=== PATIENT | female | born 1980 | race Caucasian/White ===

== ENCOUNTER 2022-05-22 12:54 | Outpatient (REF) | payer BC, SELFPAY | END 2022-05-22 12:55 | disposition home or self-care (01) | LOC: HO.MDS 12:54 | PROVIDERS: Visit Provider Psychiatry & Neurology Neurology | DX: H46.9 Unspecified optic neuritis (principal) | CPT/HCPCS: 96365; J2930 ==

== ENCOUNTER 2022-05-23 12:21 | Outpatient (REF) | payer BC, SELFPAY | END 2022-05-23 12:22 | disposition home or self-care (01) | LOC: HO.MDS 12:21 | PROVIDERS: Visit Provider Psychiatry & Neurology Neurology | DX: H46.9 Unspecified optic neuritis (principal) | CPT/HCPCS: 96365; J2930 ==

== ENCOUNTER 2022-05-24 08:00 | Outpatient (REF) | payer BC, SELFPAY | END 2022-05-24 08:01 | disposition home or self-care (01) | LOC: HO.MDS 08:00 | PROVIDERS: Visit Provider Psychiatry & Neurology Neurology | DX: H46.9 Unspecified optic neuritis (principal) | CPT/HCPCS: 96365; J2930 ==

== ENCOUNTER 2022-06-10 08:32 | Outpatient (REF) | payer BC, OTHER, SELFPAY ==
--- NOTE | ~2022-06-10 | MR_ITS ---
MRI ORBITS WITHOUT AND WITH CONTRAST CLINICAL INFORMATION: Left-sided optic neuritis. COMPARISON: Brain MRI May 01, 2022. TECHNIQUE: MRI of the orbits was obtained using routine sequences without and with contrast. Intravenous contrast: Gadavist 8.5 mL. FINDINGS: The intraorbital soft tissues including the globes, extraocular muscles, lacrimal glands, and optic nerves are normal. Preserved fat within the orbital fissures and pterygopalatine fossa bilaterally. Bone marrow signal is homogenous and normal. No pathologic signal nor enhancement within the optic nerves. Cavernous sinuses are symmetric and normal. There is no parenchymal signal abnormality. There is no pathologic enhancement intracranially. 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 There is no sellar/suprasellar mass effect. MR/MR orbits face neck wo/w con IMPRESSION: - There is no pathologic enhancement nor signal within the optic nerves. No parenchymal signal abnormality. 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 There is no sellar/suprasellar mass effect.
== END 2022-06-10 08:33 | disposition home or self-care (01) ==
LOC: HO.MRI 08:32
PROVIDERS: Visit Provider Psychiatry & Neurology Neurology
DX: H46.9 Unspecified optic neuritis (principal)
CPT/HCPCS: 70543; A9585